=== PATIENT | female | born 1990 | race Caucasian/White ===

== ENCOUNTER 2025-05-14 01:13 | Emergency (ER) | payer SELFPAY ==
[2025-05-14] MEDS ORDERED: Sodium Chloride 0.9% 10 ML Syringe FLUSH PRN (03:01)
[2025-05-14 03:06] LABS: BASOPHILS ABSOLUTE AUTO 0.1 K/mm3 (0.0-0.2); BASOPHILS PERCENT AUTO 0.6 % (0.0-1.0); EOSINOPHILS ABSOLUTE AUTO 0.0 K/mm3 (0.0-0.4); EOSINOPHILS PERCENT AUTO 0.0 % (0.0-6.0); IMMATURE GRAN ABSOLUTE AUTO 0.02 K/mm3 (0.00-0.05); IMMATURE GRAN PERCENT AUTO 0.2 % (0.0-0.4); LYMPHOCYTES ABSOLUTE AUTO 0.8 K/mm3 (1.0-4.8); LYMPHOCYTES PERCENT AUTO 10.0 % (24.0-44.0); MEAN PLATELET VOLUME 10.0 fl (9.4-12.3); MONOCYTES ABSOLUTE AUTO 0.2 K/mm3 (0.0-0.8); MONOCYTES PERCENT AUTO 2.1 % (0.0-8.0); NEUTROPHILS ABSOLUTE AUTO 7.2 K/mm3 (1.8-7.7); NEUTROPHILS PERCENT AUTO 87.1 % (41.0-71.0); NRBC ABSOLUTE 0.00 (0.00-0.02); NRBC PERCENT 0.0 % (0.0-0.2); PLATELET COUNT,PLT 271 K/mm3 (150-400); RED BLOOD CELL COUNT 4.77 M/mm3 (4.10-5.30); WHITE BLOOD CELL COUNT,WBC 8.21 K/mm3 (3.9-11.3)
[2025-05-14] MEDS: Ondansetron 4 MG/2 ML SDV IVPUSH ONE (03:17)
[2025-05-14 03:30] LABS: A/G RATIO 1.2 (1-2); ALANINE AMINOTRANSFERASE,ALT 26 U/L (14-59); ASPARTATE AMNIOTRANSFERASE,AST 19 U/L (15-37); BILIRUBIN TOTAL 0.4 mg/dL (0.2-1.0); BLOOD UREA NITROGEN,BUN 13 mg/dL (7-18); CARBON DIOXIDE,CO2 28 mEq/L (21-32); CHLORIDE,CL 105 mEq/L (98-107); CREATININE 0.6 mg/dL (0.55-1.02); EST CRCL DRUG DOSING (CG) 122.70 mL/min; ESTIMATED GFR 121 mL/min (>60); GLUCOSE RANDOM 119 mg/dL (70-99); POTASSIUM,K 3.8 mEq/L (3.5-5.1); PROTEIN TOTAL,TP 7.0 g/dl (6.4-8.2); SODIUM,NA 139 mEq/L (136-145)
[2025-05-14] MEDS: diphenhydrAMINE 50 MG/ML SDV IVPUSH ONE (03:33)
[2025-05-14 03:50] LABS: TROPONIN I HIGH SENSITIVITY < 4 pg/mL (<=51)
== END 2025-05-14 04:57 | disposition home or self-care (01) ==
LOC: JD.ED 01:13
DX: R55 Syncope and collapse (principal); R51.9 Headache, unspecified; Z88.1 Allergy status to other antibiotic agents; Z87.19 Personal history of other diseases of the digestive system
CPT/HCPCS: 36415; 80053; 83735; 84484; 84703; 85025; 93005; 96360; 99284; A9270; J1200; J2405; J2765; J7030